=== PATIENT | male | born 1955 | race Two or more races ===

== ENCOUNTER 2019-07-08 10:13 | Inpatient (IN) | payer OTHER ==
[~2019-07-08] VITALS: Ht 175.3 cm; Wt 83.9 kg
[2019-07-30] MEDS ORDERED: ZOCOR20 MG PO (10:11)
[2019-07-30] MEDS ORDERED: JANUMET XR 1001 EACH PO (10:11)
[2019-08-10] MEDS ORDERED: INTESTINEX680 M1 PO ×2 (12:10)
[2019-08-10] MEDS ORDERED: PERCOCET 5-3251 EACH PO ×2 (12:10)
[2019-08-10] MEDS ORDERED: OMEPRAZOLE20 MG PO ×2 (12:10)
== END 2019-08-10 13:50 | disposition home or self-care (01) | DRG 331 ==
LOC: SURG 07-30 08:30 → O/R 08-07 06:30 → SURG 08-07 08:30
PROVIDERS: ADMIT Surgery
PROC: 07TB4ZZ Resection of Mesenteric Lymphatic, Percutaneous Endoscopic Approach (ICD-10-PCS; 2019-08-07)
PROC: 0DTF4ZZ Resection of Right Large Intestine, Percutaneous Endoscopic Approach (ICD-10-PCS; principal; 2019-08-07 12:45)
DX: C18.2 Malignant neoplasm of ascending colon (principal); R59.0 Localized enlarged lymph nodes; E11.9 Type 2 diabetes mellitus without complications; E78.00 Pure hypercholesterolemia, unspecified

== ENCOUNTER → 2019-07-23 06:34 | Outpatient (CLI) | payer OTHER | END | disposition home or self-care (01) | LOC: LAB 06:34 | DX: C18.2 Malignant neoplasm of ascending colon (principal); R59.0 Localized enlarged lymph nodes; R10.84 Generalized abdominal pain ==

== ENCOUNTER 2019-08-06 07:00 | Day surgery (SDC) | payer OTHER ==
[~2019-08-06 07:00] MED LIST: JANUMET XR 1001 EACH PO; ZOCOR20 MG PO
== END 2019-08-06 17:45 | disposition home or self-care (01) ==
LOC: AMB-ENDOS 07:00
DX: C18.2 Malignant neoplasm of ascending colon (principal); R59.0 Localized enlarged lymph nodes; D12.3 Benign neoplasm of transverse colon

== ENCOUNTER 2020-08-01 05:30 | Day surgery (SDC) | payer OTHER ==
[~2020-08-01 05:30] MED LIST changes: +INTESTINEX680 M1 PO; +OMEPRAZOLE20 MG PO; +PERCOCET 5-3251 EACH PO
== END 2020-08-01 09:20 | disposition home or self-care (01) ==
LOC: AMB-ENDOS 05:30
PROVIDERS: ATTEND Surgery
DX: D12.3 Benign neoplasm of transverse colon (principal); D12.5 Benign neoplasm of sigmoid colon; Z20.828 Contact with and (suspected) exposure to other viral communicable diseases